=== PATIENT | female | born 1955 | race Caucasian/White ===

== ENCOUNTER 2023-11-10 12:45 | Emergency (ER) | payer MEDICARE, OTHER, SELFPAY ==
--- NOTE | ~2023-11-10 | CT_ITS ---
EXAMINATION: CT LUMBAR SPINE WITHOUT CONTRAST CLINICAL INFORMATION: Low back pain. COMPARISON: None available. TECHNIQUE: Thin section axial imaging with sagittal coronal reformats are obtained. This CT examination was performed using dose optimization techniques as appropriate, variously including the following: *Automated exposure control *Adjustment of mA and/or kV according to patient size (this includes techniques or standardized protocols for targeted exams where dose is matched to indication/reason for exam; i.e. extremities or head) *Use of iterative reconstruction technique DLP; 410 mGy-cm FINDINGS: There is diffuse osteopenia but an acute compression fracture is not observed. There is advanced disc space narrowing L3-L4 and L4-L5 and L5-S1 with mild annular disc protrusions at these levels. No significant spinal stenosis. The sacrum appears intact. The SI joints appear symmetric. Given the degree of osteopenia, if there is concern for subtle stress fracture in the sacrum, MRI would be more sensitive. The most distal sacrum and coccyx appear intact. CT/CT lumbar spine wo IV con IMPRESSION: Multilevel degenerative change but no fracture seen.
[2023-11-10 12:49] VITALS: BP 138/68; PULSE 85; O2SAT 100
[2023-11-10 12:53] VITALS: BP 137/55; PULSE 87; RESP 14; TEMP 36.3; O2SAT 99; BMI 24.8
--- NOTE | 2023-11-10 12:54 | ED_ITS ---
HPI - General Adult General Chief complaint: Fall Stated complaint: FALL,BACK PAIN PER EMS Time Seen by Provider: 11/10/23 12:49 Source: patient Mode of arrival: EMS Limitations: no limitations History of Present Illness HPI narrative: 68 yo f with no significant pmhx presents after a fall today. [place] [employer] and there was a broken bag of rice on the ground that she slipped on. Patient states she fell onto her lower back, and did not hit her head or lose consciousness. She states now that there is a lot of pain, and it feels better to sit on her side. Patient is not on any thinners. Denies cp, sob, nausea, vomiting, diarrhea, bowel/bladder incontinence, fevers, chills, JARVIS, vision changes,m dizziness, weakness Related Data Allergies Allergy/AdvReac Type Severity Reaction Status Date / Time No Known Allergies Allergy Verified 11/10/23 12:54 Review of Systems Review of Systems: Yes all other systems are reviewed and are negative [facility] Past Medical History Attestation statement: The following information was validated with the patient. Source: unable to obtain and nursing notes reviewed Social History Social History Advance Directives: No Advance Directives Information Provided: Yes Do you have a plan to hurt others: No Plan Physical Exam ED Vital Signs: Vital Signs - 24 hr 11/10/23 12:53 Temperature 97.3 F Pulse Rate 87 Respiratory Rate 14 Blood Pressure 137/55 L Pulse Oximetry 99 Oxygen Delivery Method Room Air BMI result Body Mass Index 24.8 Appearance: Alert.? Oriented X3.? No acute distress.? Head: Normocephalic, atraumatic, no step-offs or deformities Eyes: Pupils equal, round and reactive to light.? Neck: Normal inspection.? Neck supple.? CVS: Normal heart rate and rhythm.? Pulses normal.? Respiratory: No respiratory distress.? Breath sounds normal.? Abdomen: Soft and nontender.? Skin: Skin warm and dry.? Normal skin color.? Normal skin turgor.? Extremities: No lower extremity edema.? No calf ttp. 5/5 strength to bilateral upper and lower extremities Back: No midline tenderness, no C-spine tenderness, full range of motion, no CVA tenderness bilaterally. +tenderness of sacral region throughout. Patient laying on side for comfort Neuro: Oriented X 3.? No motor deficit.? No sensory deficit. CN 2-12 intact . No saddle paresthesias. Steady gait normal coordination. Course Reevaluation(s) Reevaluation #1: Sign out to [facility] ct mri technologist pending imaing Time: 16:14 Reevaluation #2: CT/CT lumbar spine wo IV con IMPRESSION: Multilevel degenerative change but no fracture seen. Patient made aware of these findings, stable for discharge home. ambulatory with steady gait Time: 17:06 Medications Administered Discontinued Medications Generic Name Dose Route Start Last Admin Trade Name Freq PRN Reason Stop Dose Admin Acetaminophen 650 mg 11/10/23 14:20 11/10/23 14:38 Acetaminophen 325 Mg Tablet PO 11/10/23 14:21 Not Given ONCE ONE Medical Decision Making Medical Decision Making [facility] Narrative: 68 yo f presents s/p slip and fall, slipped on rice on the ground PE - TTP to sacral region, laying on her side. Neuro nonfocal History and physical exam concerning for possible fracture of coccyx/sacrum versus contusion. Unlikely intracranial hemorrhage, stroke, posterior stroke, traumatic injury to cervical spine such as fracture, dislocation traumatic subluxation. Unlikely traumatic injury to chest, abdomen. Will rule out traumatic injury to pelvis/sacral regio/spine. Unlikely hemorrhage patient not on blood thinners. Unlikely cauda equina, cord compression. Plan at this time imaging. Patient offered Tylenol however states pain is not that bad so she does not need a Differential Diagnosis Differential Diagnoses: The differential diagnosis associated with the presentation includes History and physical exam concerning for possible fracture of coccyx/sacrum versus contusion. Unlikely intracranial hemorrhage, stroke, posterior stroke, traumatic injury to cervical spine such as fracture, dislocation traumatic subluxation. Unlikely traumatic injury to chest, abdomen. Will rule out traumatic injury to pelvis/sacral regio/spine. Unlikely hemorrhage patient not on blood thinners. Unlikely cauda equina, cord compression. Admission/Observation Consideration of admission/observation: Escalation of care including admission/observation considered Unlikely Independent Interpretation I performed an independent interpretation of an: CT Scan Radiology Impression Discussion of test interpretation with radiology: I have reviewed the radiologist's reading. Critical Care Time Critical Care Time Critical Care Time: No Discharge Plan Discharge Clinical Impression: Fall from slipping, Pain in sacrum Patient Disposition: Home, Self-Care Instructions: Acute Low Back Pain (ED) Additional Instructions: Your CT scan shows general arthritis type changes. Take your medications as prescribed. If you were prescribed antibiotics today, it is important that you take your medication to their entirety, do not skip any doses, do not finish them early. Follow-up with your primary care provider this week. Return to the emergency department with new or worsening symptoms. Such as fevers, chills, chest pain, shortness of breath, nausea, vomiting, dizziness, headache, vision changes, lethargy In case of emergency call 911 Can take ibuprofen every 6 hours, Tylenol every 4 as needed for pain or discomfort. Referrals: Physician,None [Primary Care Provider] - 2 days Stand Alone Forms: Work/School Release Print Language: Chinese
[2023-11-10 17:19] VITALS: BP 126/66; PULSE 67; RESP 16; TEMP 37; O2SAT 99
[2023-11-10 17:20] VITALS: BP 126/66; PULSE 67; RESP 16; TEMP 37; O2SAT 99
== END 2023-11-10 17:21 | disposition home or self-care (01) ==
PROVIDERS: Emergency Provider Emergency Medicine
DX: S39.92XA Unspecified injury of lower back, initial encounter (principal); M53.3 Sacrococcygeal disorders, not elsewhere classified; W01.0XXA Fall on same level from slipping, tripping and stumbling without subsequent striking against object, initial encounter; Y93.9 Activity, unspecified; Y92.512 Supermarket, store or market as the place of occurrence of the external cause; Y99.8 Other external cause status
CPT/HCPCS: 72132; 99283; 99284